=== PATIENT | male | born 2005 | race Caucasian/White ===

== ENCOUNTER 2025-03-26 13:35 | Inpatient (IN) | payer OTHER ==
[~2025-03-26] VITALS: Ht 167.6 cm; Wt 68.0 kg
[2025-03-26 13:44] VITALS: O2SAT 100
[2025-03-26] MEDS: HYDROCODONE/ACETAMINOPHEN 5/325MG TABLET PO ONE (14:28)
[2025-03-26] MEDS: LIDOCAINE HCL 1% 20ML VIAL INFIL ONE (14:29)
[2025-03-26 16:00] VITALS: BP 113/62; PULSE 95; RESP 18; TEMP 36.4; O2SAT 98
[2025-03-26] MEDS: AMPICILLIN SOD/SULBACTAM NA 3 G in SODIUM CHLORIDE 0.9% 100 ML IV SCH (16:09)
[2025-03-26 17:05] LABS: BASOPHILS % 0.8 % (0.0-2.0); EOSINOPHILS % 1.5 % (0.0-5.0); HEMATOCRIT. 42.3 % (42.0-52.0); HEMOGLOBIN. 14.2 g/dL (14.0-18.0); LYMPHOCYTES % 19.6 % (20.0-50.0); MEAN PLATELET VOLUME 8.7 fl (7.4-10.4); MONOCYTES % 5.0 % (2.0-8.0); NEUTROPHILS % 73.1 % (40.0-76.0); PLATELET 221 x1000/uL (130-400); RED BLOOD CELL COUNT 4.70 mill/uL (4.7-6.1); RED CELL DISTRIBUTION WIDTH 13.1 % (11.6-14.6)
[2025-03-26 17:16] LABS: INR 1.0
[2025-03-26 17:22] LABS: CREATININE 1.1 mg/dL (0.6-1.3)
[2025-03-26 17:23] LABS: UREA NITROGEN BLOOD 19 mg/dL (9-23)
[2025-03-26 17:24] LABS: ASPARTATE AMINOTRANSFERASE 20 IU/L (<34)
[2025-03-26 17:25] LABS: BILIRUBIN TOTAL 0.4 mg/dL (0.1-1.0); PROTEIN TOTAL 6.9 g/dL (6.0-8.3)
[2025-03-26] MEDS ORDERED: CEFAZOLIN SODIUM 1000MG/VIAL IV SCH (19:00)
[2025-03-26] MEDS ORDERED: NALOXONE HCL 0.4MG/ML VIAL IV PRN (19:00)
[2025-03-26 20:00] VITALS: BP 101/64; PULSE 61; RESP 21; TEMP 36.3; O2SAT 98
[2025-03-26] MEDS: CEFAZOLIN 1000MG PREMIX 50 ML IV SCH (23:41)
[2025-03-27] VITALS: BP 113/56; PULSE 52; RESP 18; TEMP 36.3; O2SAT 99
[2025-03-27 04:00] VITALS: BP 111/60; PULSE 63; RESP 18; TEMP 36.3; O2SAT 99
[2025-03-27 08:00] VITALS: BP 121/74; PULSE 59; RESP 17; TEMP 36.1; O2SAT 98
[2025-03-27 12:00] VITALS: BP 119/73; PULSE 63; RESP 16; TEMP 36.6; O2SAT 98
[2025-03-27 16:00] VITALS: BP 124/75; PULSE 75; RESP 17; TEMP 36.4; O2SAT 98
[2025-03-27] MEDS ORDERED: ONDANSETRON HCL 4MG/2ML INJ IV PRN (16:45)
[2025-03-27] MEDS ORDERED: ACETAMINOPHEN 325MG TABLET PO PRN (16:45)
[2025-03-27 20:00] VITALS: BP 122/68; PULSE 63; RESP 19; TEMP 36.2; O2SAT 98
[2025-03-27 20:03] LABS: CLARITY URINE CLEAR (CLEAR); COLOR URINE YELLOW (YELLOW); GLUCOSE URINE NEGATIVE (NEGATIVE); KETONES URINE NEGATIVE (NEGATIVE); LEUKOCYTE ESTERASE URINE NEGATIVE (NEGATIVE); NITRITE URINE NEGATIVE (NEGATIVE); OCCULT BLOOD URINE NEGATIVE (NEGATIVE); PH URINE 7.0 (4.5-8.0); PROTEIN URINE NEGATIVE (NEGATIVE); SPECIFIC GRAVITY URINE 1.012 (1.005-1.030); UROBILINOGEN URINE 0.2 E.U./dL (0.2-1.0)
[2025-03-27 20:17] LABS: *AMPHETAMINES SCREEN URINE NEGATIVE (NEGATIVE); *BARBITURATES SCREEN URINE NEGATIVE (NEGATIVE); *BENZODIAZEPINES SCREEN URINE NEGATIVE (NEGATIVE); *COCAINE SCREEN URINE NEGATIVE (NEGATIVE); CANNABINOID URINE SCREEN NEGATIVE (NEGATIVE); ECSTASY MDMA SCREEN URINE NEGATIVE (NEGATIVE); METHADONE URINE SCREEN NEGATIVE (NEGATIVE); OPIATES URINE SCREEN NEGATIVE (NEGATIVE); PHENCYCLIDINE URINE SCREEN NEGATIVE (NEGATIVE)
[2025-03-28] VITALS: BP 121/70; PULSE 53; RESP 19; TEMP 36.4; O2SAT 99
[2025-03-28 08:00] VITALS: BP 127/77; PULSE 58; RESP 16; TEMP 36; O2SAT 99
[2025-03-28 08:05] LABS: BASOPHILS % 0.5 % (0.0-2.0); EOSINOPHILS % 4.7 % (0.0-5.0); HEMATOCRIT. 44.2 % (42.0-52.0); HEMOGLOBIN. 14.8 g/dL (14.0-18.0); LYMPHOCYTES % 36.4 % (20.0-50.0); MEAN PLATELET VOLUME 8.8 fl (7.4-10.4); MONOCYTES % 8.9 % (2.0-8.0); NEUTROPHILS % 49.5 % (40.0-76.0); PLATELET 227 x1000/uL (130-400); RED BLOOD CELL COUNT 4.92 mill/uL (4.7-6.1); RED CELL DISTRIBUTION WIDTH 13.5 % (11.6-14.6)
[2025-03-28 08:22] LABS: CREATININE 1.0 mg/dL (0.6-1.3); UREA NITROGEN BLOOD 17 mg/dL (9-23)
[2025-03-28] MEDS: PANTOPRAZOLE SODIUM 40 MG/VIAL IV SCH (09:05)
[2025-03-28] MEDS ORDERED: PROPOFOL 200MG/20ML VIAL IV ONE (18:54)
[2025-03-28] MEDS ORDERED: FENTANYL CITRATE/PF 50MCG/ML 2ML VIAL ONE ×2 (18:54→19:17)
[2025-03-28] MEDS ORDERED: MIDAZOLAM HCL 2 MG/2 ML VIAL ONE (18:55)
[2025-03-28] MEDS ORDERED: LIDOCAINE HCL/EPINEPHRINE 1%-EPI 1:100,000 20ML VIAL ONE (19:16)
[2025-03-28] MEDS ORDERED: METOCLOPRAMIDE HCL 10MG/2ML VIAL ONE (19:30)
[2025-03-28] MEDS ORDERED: HYDROMORPHONE HCL/PF 1MG/ML INJ IV PRN (19:30)
[2025-03-28] MEDS ORDERED: ONDANSETRON HCL 4MG/2ML INJ IV PRN (19:30)
[2025-03-28] MEDS ORDERED: LIDOCAINE HCL 1% 20ML VIAL ONE (19:30)
[2025-03-28] MEDS ORDERED: EPHEDRINE SULFATE 50MG/ML VIAL ONE (19:48)
[2025-03-28] MEDS ORDERED: BACITRACIN 14GM TUBE TOP ONE (19:50)
[2025-03-28] MEDS ORDERED: CEFAZOLIN SODIUM 1000MG/VIAL ONE (19:55)
[2025-03-29] VITALS: BP 112/60; PULSE 59; RESP 16; TEMP 36.4; O2SAT 98
[2025-03-29] MEDS: CEFAZOLIN 1000MG PREMIX 50 ML IV SCH (03:33)
[2025-03-29 04:00] VITALS: BP 131/81; PULSE 55; RESP 16; TEMP 36.5; O2SAT 98
[2025-03-29] MEDS: MORPHINE SULFATE 2 MG/ML INJ (NOT FOR IM USE) IV PRN (05:05)
[2025-03-29 08:00] VITALS: BP 121/81; PULSE 67; RESP 17; TEMP 36.4; O2SAT 100
[2025-03-29] MEDS: HYDROCODONE/ACETAMINOPHEN 10/325MG TABLET PO PRN (08:49)
[2025-03-29 09:19] LABS: BASOPHILS % 0.5 % (0.0-2.0); EOSINOPHILS % 4.2 % (0.0-5.0); HEMATOCRIT. 44.3 % (42.0-52.0); HEMOGLOBIN. 15.0 g/dL (14.0-18.0); LYMPHOCYTES % 39.2 % (20.0-50.0); MEAN PLATELET VOLUME 8.7 fl (7.4-10.4); MONOCYTES % 7.7 % (2.0-8.0); NEUTROPHILS % 48.4 % (40.0-76.0); PLATELET 222 x1000/uL (130-400); RED BLOOD CELL COUNT 4.89 mill/uL (4.7-6.1); RED CELL DISTRIBUTION WIDTH 13.3 % (11.6-14.6)
[2025-03-29 09:39] LABS: CREATININE 1.1 mg/dL (0.6-1.3); UREA NITROGEN BLOOD 12 mg/dL (9-23)
[2025-03-29 12:00] VITALS: BP 129/65; PULSE 63; RESP 16; TEMP 36.5; O2SAT 100
[2025-03-29] MEDS ORDERED: ACET-2708 MT (14:13)
[2025-03-29] MEDS ORDERED: IBUP-2029 MT (14:13)
== END 2025-03-29 14:50 | disposition home or self-care (01) | DRG 906 ==
LOC: ER 13:35 → 7EST 15:36
PROVIDERS: ADMIT Internal Medicine; ATTEND Internal Medicine
PROC: 0X6L0Z3 Detachment at Right Thumb, Low, Open Approach (ICD-10-PCS; principal; 2025-03-28)
DX: S68.021A Partial traumatic metacarpophalangeal amputation of right thumb, initial encounter (principal); D72.829 Elevated white blood cell count, unspecified; Z60.3 Acculturation difficulty; W23.0XXA Caught, crushed, jammed, or pinched between moving objects, initial encounter; Z83.3 Family history of diabetes mellitus; Y93.89 Activity, other specified; Y92.89 Other specified places as the place of occurrence of the external cause; Z90.49 Acquired absence of other specified parts of digestive tract; Y99.0 Civilian activity done for income or pay
CPT/HCPCS: 36415; 73130; 80048; 80053; 80305; 81003; 84145; 85025; 86850; 86900; 88304; 99285; A4606; J0295; J0690; J2003; J2004; J2250; J2270; J2405; J2470; J2704; J2765; J3010; J3490; J7030; J7050